=== PATIENT | male | born 1970 | race Hispanic/Latino ===

== ENCOUNTER 2021-01-01 09:43 | Outpatient (CLI) | payer OTHER ==
--- NOTE | 2021-01-01 11:48 | RAD ---
RADIOGRAPH CERVICAL SPINE 6 VIEWS: DATE: 01/01/2021 HISTORY: 50-year-old male with cervicalgia TECHNIQUE: Lateral, swimmer's, flexion and extension views. AP and open-mouth. FINDINGS: Alignment is normal. Vertebral body heights and disc spaces are maintained. There is no prevertebral soft tissue swelling. There is no fracture. No instability between flexion and extension. Mild osteophytosis protruding into the prevertebral space at C4-5, and to a greater degree at C5-6. Multil evel mild bilateral facet DJD. IMPRESSION: 1. Mild cervical spondylosis. 2. No major pathology identified
== END 2021-01-01 09:44 | disposition home or self-care (01) ==
LOC: SCSRAD 09:43
PROVIDERS: ATTEND Neurological Surgery
DX: M47.22 Other spondylosis with radiculopathy, cervical region (principal)
CPT/HCPCS: 72050